=== PATIENT | female | born 1970 | race Asian ===

== ENCOUNTER 2017-03-23 00:02 | Emergency (ER) | payer BC ==
[~2017-03-23] VITALS: Ht 162.6 cm; Wt 54.4 kg
--- NOTE | 2017-03-23 00:15 | NUR ---
Pt biba from home for L. foot injury. Pt dropped a shelf on left foot. Pt has laceration, swelling and pain to the left great toe and pain, swelling to left second toe. Pt resting in position of comfort for self. Awaiting further eval. at bedside.
--- NOTE | 2017-03-23 00:40 | NUR ---
Dr. Dietz to bedside for MSE and digital block to left great toe.
[2017-03-23] MEDS ORDERED: HYDROCODONE/APAP 10-325 MG TABLET PO ONE (01:30)
[2017-03-23] MEDS ORDERED: TDAP DIPH,PERTUSS,TET VAC/PF 0.5 ML DISP.SYRIN IM ONE ×2 (01:30→03:01)
[2017-03-23] MEDS ORDERED: AMOXICILLIN-CLAVUL 875-125MG TABLET PO ONE (01:30)
[2017-03-23] MEDS ORDERED: AMOXICILLIN-CLAVUL 875-125MG TABLET ONE (01:44)
[2017-03-23] MEDS ORDERED: LIDOCAINE HCL 1% 20 ML VIAL IJ ONE (01:45)
[2017-03-23] MEDS ORDERED: HYDROCODONE/APAP 10-325 MG TABLET ONE (01:45)
--- NOTE | 2017-03-23 02:00 | NUR ---
Xrays obtained. Lacerations soaked and irrigated. Dr. Dietz at bedside for laceration repair using sutures.
--- NOTE | 2017-03-23 02:55 | NUR ---
MD notified of pt's blood pressure. Awaiting further orders.
[2017-03-23] MEDS ORDERED: NEOMY/BACITRA/POLYMYXIN B OINT UD PACKET TP ONE ×2 (03:00)
[2017-03-23] MEDS ORDERED: HYDROMORPHONE 1 MG/1 ML DISP.SYRIN IM ONE (03:15)
[2017-03-23] MEDS ORDERED: diphenhydrAMINE 50 MG/1 ML VIAL IM ONE (03:15)
--- NOTE | 2017-03-23 03:20 | NUR ---
Pt medicated for discomfort, will monitor for effects of medication.
[2017-03-23] MEDS ORDERED: HYDROMORPHONE 1 MG/1 ML DISP.SYRIN ONE (03:22)
[2017-03-23] MEDS ORDERED: diphenhydrAMINE 50 MG/1 ML VIAL ONE (03:23)
--- NOTE | 2017-03-23 04:15 | NUR ---
Pt stable for discharge per MD. Pt given ACI by Dr. Dietz. Both pt and verbalized understanding of dc instructions. Pt wheeled out of er via w/c with ride home.
[2017-03-23 05:13] VITALS: BP 134/91
== END 2017-03-23 04:15 | disposition home or self-care (01) ==
LOC: ER 00:06 → EDBD 00:06 → ER 04:15
DX: S92.402B Displaced unspecified fracture of left great toe, initial encounter for open fracture (principal); S90.122A Contusion of left lesser toe(s) without damage to nail, initial encounter; X58.XXXA Exposure to other specified factors, initial encounter; Y93.89 Activity, other specified; Y99.8 Other external cause status; Y92.89 Other specified places as the place of occurrence of the external cause
CPT/HCPCS: 73660; 90715; A4217; A4663; J1170; J1200

== ENCOUNTER 2017-03-25 11:17 | Emergency (ER) | payer BC ==
[~2017-03-25] VITALS: Ht 152.4 cm; Wt 52.2 kg
--- NOTE | 2017-03-25 11:38 | NUR ---
DR PLASCENCIA AT BEDSIDE FOR EVALUATION
[2017-03-25] MEDS ORDERED: NEOMY/BACITRA/POLYMYXIN B OINT UD PACKET TP ONE ×2 (11:45→12:00)
--- NOTE | 2017-03-25 12:06 | NUR ---
Patient discharged to home in stable conditon. Written and verbal after care instructions given. Patient verbalizes understanding of instructions.pt with so
== END 2017-03-25 12:13 | disposition home or self-care (01) ==
LOC: ER 11:17
DX: S92.402G Displaced unspecified fracture of left great toe, subsequent encounter for fracture with delayed healing (principal); X58.XXXD Exposure to other specified factors, subsequent encounter
CPT/HCPCS: A4663

== ENCOUNTER 2017-04-05 16:24 | Emergency (ER) | payer BC ==
[~2017-04-05] VITALS: Ht 154.9 cm; Wt 54.4 kg
[2017-04-05] MEDS ORDERED: NEOMY/BACITRA/POLYMYXIN B OINT UD PACKET TP ONE (17:00)
--- NOTE | 2017-04-05 17:05 | NUR ---
Patient discharged to home in stable conditon. Written and verbal after care instructions given. Patient verbalizes understanding of instructions.
== END 2017-04-05 17:10 | disposition home or self-care (01) ==
LOC: ER 16:24
DX: S91.102D Unspecified open wound of left great toe without damage to nail, subsequent encounter (principal); X58.XXXD Exposure to other specified factors, subsequent encounter; Z48.00 Encounter for change or removal of nonsurgical wound dressing
CPT/HCPCS: 99283; A4663